=== PATIENT | male | born 1990 | race Hispanic/Latino ===

== ENCOUNTER 2022-12-21 01:34 | Emergency (ER) | payer SELFPAY ==
[2022-12-21] MEDS ORDERED: Boostrix 0.5 ML (Tdap) VIAL (>/=7 yrs of age) ONE (02:59)
[2022-12-21] MEDS ORDERED: Acetaminophen 500 MG TAB ONE (02:59)
[2022-12-21] MEDS ORDERED: Ketorolac Tromethamine 30 MG/ML VIAL ONE (03:58)
[2022-12-21] MEDS ORDERED: Bacitracin 1 PK ONE (03:58)
== END 2022-12-21 04:06 | disposition home or self-care (01) ==
LOC: ERS 01:34
DX: S01.01XA Laceration without foreign body of scalp, initial encounter (principal); Y04.0XXA Assault by unarmed brawl or fight, initial encounter; Z23 Encounter for immunization
CPT/HCPCS: 12002; 70450; 90471; 90715; 96372; J1885